=== PATIENT | female | born 1955 | race Caucasian/White ===

== ENCOUNTER → 2018-04-29 15:04 | Outpatient (CLI) | payer BC, SELFPAY ==
--- NOTE | 2018-04-29 15:12 | XR_ITS ---
XR DEXA axial skeleton HISTORY: ITS.REASON: OSTEOPOROSIS,POST MENOPAUSAL ORDERING PHYSICIAN: Fang Elena MD PATIENT AGE: 62 years COMPARISON: None FINDINGS: The BMD measured at the Right femoral neck is 0.919 g/cm squared with a T score of -0.9. This is considered Normal according to the World Health Organization criteria. Fracture risk is Low. The L1 L4 density is also normal with a T score of 1.1. IMPRESSION: Normal bone density. Low fracture risk. Suggest follow-up exam April 2020
--- NOTE | 2018-04-29 15:13 | MM_ITS ---
MM Dig screening mamm BI w/CAD ORDERING PHYSICIAN : Fang Elena MD PATIENT AGE: 62 years GENDER: Female COMPARISON: Awaiting outside studies INDICATION: ITS.REASON: SCREENING. No hormones. No new complaints. Noncontributory family history. TECHNIQUE: Standard CC and MLO images were obtained. R2 CAD reviewed. Additional CC left breast nipple profile. FINDINGS: Low-density breast bilaterally with generalized fatty replacement. No dominant mass nor suspicious calcifications in either breast. . There are some scattered ovoid benign appearing densities in both breast which I believe can be followed safely. IMPRESSION: . Low-density breast, generalized fatty replacement No suspicious areas. Scattered small benign-appearing nodular densities bilaterally can be followed in one year. Likely intramammary nodes. BI-RADS Category: 2 Benign Finding(s) RECOMMENDED FOLLOW-UP: 1YR 1 YEAR FOLLOW-UP (A letter has been sent to the patient regarding results of the study.)
== END ==
PROVIDERS: PCP Emergency Medicine; Visit Provider Emergency Medicine
DX: Z12.31 Encounter for screening mammogram for malignant neoplasm of breast (principal); Z13.820 Encounter for screening for osteoporosis; Z78.0 Asymptomatic menopausal state
CPT/HCPCS: 77067; 77080

== ENCOUNTER → 2020-04-20 11:18 | Outpatient (CLI) | payer MEDICARE, BC, SELFPAY ==
[2020-04-20 11:52] LABS: Basophils % 0.3 % (0.1-2.0); Eosinophils # 0.1 K/mm3 (0.0-0.4); Eosinophils % 0.9 % (0.1-12.0); Hematocrit 38.4 % (37.0-47.0); Hemoglobin 12.2 g/dL (12.2-16.2); Lymphocytes # 1.9 K/mm3 (0.7-4.5); Lymphocytes % 22.7 % (10-50); Mean Corpuscular HGB Conc 31.8 g/dL (31.8-35.4); Mean Corpuscular Hemoglobin 28.7 pg (27.0-31.2); Mean Corpuscular Volume 90.1 fl (81-99); Mean Platelet Volume 7.2 fl (7.4-10.4); Monocytes # 0.4 K/mm3 (0.1-1.0); Monocytes % 4.6 % (1.7-9.3); Neutrophils # 5.9 K/mm3 (1.8-7.8); Neutrophils % 71.6 % (37.0-80.0); Platelet Count 238 K/mm3 (142-424); Red Blood Count 4.27 M/mm3 (4.20-5.40); Red Cell Distribution Width 13.6 % (11.5-17.5); White Blood Count 8.2 K/mm3 (4.8-10.8)
== END ==
PROVIDERS: PCP Physician Assistant; Visit Provider Physician Assistant
DX: Z03.818 Encounter for observation for suspected exposure to other biological agents ruled out (principal)
CPT/HCPCS: 36415; 85025; U0003